=== PATIENT | male | born 1955 | race Caucasian/White ===

== ENCOUNTER 2017-11-17 11:04 | Emergency (ER) | payer OTHER ==
[2017-11-17 12:24] LABS: BILIRUBIN,URINE NEGATIVE (NEG); CLARITY,URINE CLEAR; COLOR,URINE YELLOW; GLUCOSE,URINE NEGATIVE (NEG); NITRITE,URINE NEGATIVE (NEG); PH,URINE 6.5; PROTEIN,URINE NEGATIVE (NEG-TRACE)
[2017-11-17 12:34] LABS: BACTERIA,URINE 0 /HPF (0-FEW); RBC,URINE OCC /HPF (0-2); WBC,URINE RARE /HPF (0-4)
[2017-11-17 12:55] LABS: ADD MAN DIFF? NO
[2017-11-17] MEDS: IV NORMAL SALINE 1000ML BAG 1,000 ML IV (12:55)
[2017-11-17] MEDS: ONDANSETRON PF 4 MG/2 ML VIAL. IV (12:55)
[2017-11-17] MEDS: fentaNYL PF VIAL 100 MCG/2 ML VIAL IV (12:59)
[2017-11-17 13:00] LABS: BASO % 1 % (0-3); EOS # 0.2 x10^3/uL (0.0-0.7); EOS % 4 % (0-3); HEMATOCRIT 45.1 % (39.0-53.0); HEMOGLOBIN 15.2 g/dL (13.0-17.5); LYMPH # 1.5 x10^3/uL (1.0-4.8); LYMPH % 26 % (24-48); MEAN CORPUSCULAR HEMOGLOBIN 30 pg (25-35); MEAN CORPUSCULAR HGB CONC 34 g/dL (31-37); MEAN CORPUSCULAR VOLUME 89 fL (79-100); MONO # 0.4 x10^3/uL (0.0-1.1); MONO % 8 % (0-9); NEUT # 3.5 x10^3uL (1.8-7.7); NEUT % 62 % (31-73); PLATELET COUNT 207 x10^3/uL (140-400); RED BLOOD COUNT 5.09 x10^6/uL (4.30-5.70); RED CELL DISTRIBUTION WIDTH 15.5 % (11.5-14.5); WHITE BLOOD COUNT 5.7 x10^3/uL (4.0-11.0)
[2017-11-17] MEDS: FAMOTIDINE 20 MG/2 ML VIAL IVP (13:02)
[2017-11-17 13:06] LABS: ANION GAP 8 (6-14); BLOOD UREA NITROGEN 14 mg/dL (8-26); CALCIUM 8.8 mg/dL (8.5-10.1); CARBON DIOXIDE 29 mmol/L (21-32); CHLORIDE 106 mmol/L (98-107); GLUCOSE 89 mg/dL (70-99); SODIUM 143 mmol/L (136-145)
[2017-11-17 13:12] LABS: ALBUMIN 3.4 g/dL (3.4-5.0); ALK PHOS 130 U/L (46-116); ALT (SGPT) 23 U/L (16-63); AST (SGOT) 17 U/L (15-37); DIRECT BILIRUBIN < 0.1 mg/dL (0.0-0.2); LIPASE 83 U/L (73-393); TOTAL BILIRUBIN 0.2 mg/dL (0.2-1.0); TOTAL PROTEIN 7.5 g/dL (6.4-8.2)
[2017-11-17 13:16] LABS: LACTIC ACID 0.7 mmol/L (0.4-2.0)
[2017-11-17 13:17] LABS: TROPONINI < 0.017 ng/mL (0.000-0.055)
[2017-11-17] MEDS ORDERED: CONTRAST GIVEN MC (13:30)
[2017-11-17] MEDS: IOHEXOL 300 MG/ML 100ML VIAL. IV (13:38)
== END 2017-11-17 15:10 | disposition home or self-care (01) ==
LOC: ER 11:04
DX: K57.92 Diverticulitis of intestine, part unspecified, without perforation or abscess without bleeding (principal); I25.2 Old myocardial infarction; Z90.49 Acquired absence of other specified parts of digestive tract
CPT/HCPCS: 36415; 74177; 80048; 80076; 81001; 83605; 83690; 84484; 85025; 93005; 96361; 96374; 96375; 99285-25; J2405; J3010; J7030; Q9967; S0028

== ENCOUNTER 2018-03-23 17:38 | Emergency (ER) | payer OTHER | END 2018-03-23 19:33 | disposition home or self-care (01) | LOC: ER 17:38 | DX: L03.314 Cellulitis of groin (principal); I25.2 Old myocardial infarction; Z90.49 Acquired absence of other specified parts of digestive tract | CPT/HCPCS: 76881; 99284-25 ==

== ENCOUNTER → 2018-04-14 | Day surgery (SDC) | payer OTHER ==
[~2018-04-14] MED LIST: LIDOCAINE 1% PF 2 ML VIAL. ID; LIDOCAINE 2% PF Vial for OR 5 ML VIAL.; MORPHINE SULFATE 2 MG/ML DISP.SYRIN. IV; PROCHLORPERAZINE 10 MG/2 ML VIAL. IV; PROPOFOL 20 ML IV; PROPOFOL 40 ML IV; fentaNYL PF VIAL 100 MCG/2 ML VIAL IV
[2018-04-14] MEDS: IV RINGERS,LACTATED 1000ML 1,000 ML IV (08:06)
== END | disposition home or self-care (01) ==
LOC: ENDOS 07:37
DX: Z12.11 Encounter for screening for malignant neoplasm of colon (principal); K63.5 Polyp of colon; K57.30 Diverticulosis of large intestine without perforation or abscess without bleeding; K64.0 First degree hemorrhoids; I10 Essential (primary) hypertension; Z96.653 Presence of artificial knee joint, bilateral; Z98.42 Cataract extraction status, left eye; Z96.1 Presence of intraocular lens; Z90.49 Acquired absence of other specified parts of digestive tract; Z98.890 Other specified postprocedural states; F17.200 Nicotine dependence, unspecified, uncomplicated; M19.90 Unspecified osteoarthritis, unspecified site; Z72.89 Other problems related to lifestyle; F17.210 Nicotine dependence, cigarettes, uncomplicated; I25.2 Old myocardial infarction; I25.10 Atherosclerotic heart disease of native coronary artery without angina pectoris; Z81.8 Family history of other mental and behavioral disorders; F32.9 Major depressive disorder, single episode, unspecified; F15.90 Other stimulant use, unspecified, uncomplicated
CPT/HCPCS: 45380; 88305; J2001; J2704

== ENCOUNTER 2019-05-15 02:11 | Emergency (ER) | payer MEDICAID, OTHER ==
[~2019-05-15] VITALS: Ht 198.1 cm; Wt 99.8 kg
[~2019-05-15 02:11] MED LIST changes: +CIPR500T94 PO; -LIDOCAINE 1% PF 2 ML VIAL. ID; -LIDOCAINE 2% PF Vial for OR 5 ML VIAL.; +METR500T PO; -MORPHINE SULFATE 2 MG/ML DISP.SYRIN. IV; -PROCHLORPERAZINE 10 MG/2 ML VIAL. IV; -PROPOFOL 20 ML IV; -PROPOFOL 40 ML IV; +SULF1TAB24 PO; -fentaNYL PF VIAL 100 MCG/2 ML VIAL IV
[2019-05-15 04:01] LABS: BASO % 0 % (0-3); EOS # 0.1 x10^3/uL (0.0-0.7); EOS % 1 % (0-3); HEMATOCRIT 52.4 % (39.0-53.0); HEMOGLOBIN 17.7 g/dL (13.0-17.5); LYMPH # 1.1 x10^3/uL (1.0-4.8); LYMPH % 10 % (24-48); MEAN CORPUSCULAR HEMOGLOBIN 30 pg (25-35); MEAN CORPUSCULAR HGB CONC 34 g/dL (31-37); MEAN CORPUSCULAR VOLUME 90 fL (79-100); MONO # 0.8 x10^3/uL (0.0-1.1); MONO % 7 % (0-9); NEUT # 9.2 x10^3/uL (1.8-7.7); NEUT % 83 % (31-73); PLATELET COUNT 280 x10^3/uL (140-400); RED BLOOD COUNT 5.84 x10^6/uL (4.30-5.70); RED CELL DISTRIBUTION WIDTH 14.1 % (11.5-14.5); WHITE BLOOD COUNT 11.1 x10^3/uL (4.0-11.0)
--- NOTE | 2019-05-15 04:09 | PHYS DOC ---
Past Medical History Past Medical History: Diverticulitis, [place], Other Additional Past Medical Histor: substance abuse Past Surgical History: Appendectomy, Knee Replacement, Other Additional Past Surgical Histo: back surgery nos, left eye cataract Smokin Pack Per Day Alcohol Use: Sober Drug Use: Marijuana, Methamphetamine Adult General Chief Complaint Chief Complaint: ABDOMINAL PAIN HPI HPI Patient is a 64 year old male with hx of diverticulitis, MT who presents with abdominal pain. Pt reports having dull intermittent epigastric abdominal pain st arted 2 months ago. The pain has become more constant for the past 3 days. He also feels more nauseated and has low appetite. Laying flat worsens the pain. He rates it as 6/10 and 3/10 with sitting straight up. He also has some dark tarry stool and constipation. Pt reports this episode is similar to his last hospital admission about a yr ago and was found to have diverticulitis. He has tried Aleve, Ibuprofen and OTC gas relieve med which does not relieve his symptoms. Review of Systems Review of Systems Constitutional: Denies fever or chills Eyes: Denies redness or eye pain HENT: Denies nasal congestion or sore throat Respiratory: Denies cough. Positive shortness of breath Cardiovascular: Denies chest pain or palpitations GI: Positive abdominal pain, nausea, or vomiting : Denies dysuria or hematuria Musculoskeletal: Denies back pain or joint pain Integument: Denies rash or skin lesions Neurologic: Denies headache, focal weakness or sensory changes Complete systems were reviewed and found to be within normal limits, except as documented in this note. Current Medications Current Medications Current Medications Medications (Trade) Dose Ordered Sig/Christie Start Time Stop Time Status Last Admin Dose Admin Famotidine (Pepcid Vial) 20 mg 1X ONCE 05/15/19 04:30 05/15/19 04:31 DC 05/15/19 04:06 20 MG Ondansetron HCl (Zofran) 4 mg 1X ONCE 05/15/19 04:30 05/15/19 04:31 DC 05/15/19 04:06 4 MG Sodium Chloride 1,000 ml @ 1,000 mls/hr 1X ONCE 05/15/19 04:30 05/15/19 05:29 05/15/19 04:06 1,000 MLS/HR Allergies Allergies Allergies Coded Allergies Type Severity Reaction Last Updated Verified No Known Drug Allergies 04/14/18 No Physical Exam Physical Exam Constitutional: Well developed, well nourished, no acute distress, non-toxic appearance HENT: Normocephalic, atraumatic, oropharynx moist Eyes: PERRL, EOMI, conjunctiva normal, no discharge Neck: Normal range of motion, no tenderness, supple Cardiovascular: Heart rate normal, regular rhythm Lungs & Thorax: Bilateral breath sounds clear to auscultation, no wheezing Abdomen: Soft, no rebound, mild epigastric tenderness. Negative gilliam's sign. Skin: Warm, dry, no erythema, no rash Back: No tenderness, no CVA tenderness Extremities: No tenderness, ROM intact, no edema Neurologic: Alert and oriented X 3, normal motor function, normal sensory function, no focal deficits noted Psychologic: Affect normal, judgement normal, mood normal Current Patient Data Vital Signs Vital Signs Date Time Temp Pulse Resp B/P (MAP) Pulse Ox O2 Delivery O2 Flow Rate FiO2 05/15/19 03:16 97.9 96 20 151/98 (115) 95 Room Air 97.9 Lab Values Laboratory Tests Test 05/15/19 03:33 05/15/19 04:00 White Blood Count 11.1 x10^3/uL (4.0-11.0) H Red Blood Count 5.84 x10^6/uL (4.30-5.70) H Hemoglobin 17.7 g/dL (13.0-17.5) H Hematocrit 52.4 % (39.0-53.0) Mean Corpuscular Volume 90 fL (79-100) Mean Corpuscular Hemoglobin 30 pg (25-35) Mean Corpuscular Hemoglobin Concent 34 g/dL (31-37) Red Cell Distribution Width 14.1 % (11.5-14.5) Platelet Count 280 x10^3/uL (140-400) Neutrophils (%) (Auto) 83 % (31-73) H Lymphocytes (%) (Auto) 10 % (24-48) L Monocytes (%) (Auto) 7 % (0-9) Eosinophils (%) (Auto) 1 % (0-3) Basophils (%) (Auto) 0 % (0-3) Neutrophils # (Auto) 9.2 x10^3/uL (1.8-7.7) H Lymphocytes # (Auto) 1.1 x10^3/uL (1.0-4.8) Monocytes # (Auto) 0.8 x10^3/uL (0.0-1.1) Eosinophils # (Auto) 0.1 x10^3/uL (0.0-0.7) Basophils # (Auto) 0.0 x10^3/uL (0.0-0.2) Prothrombin Time 13.5 SEC (11.7-14.0) Prothrombin Time INR 1.1 (0.8-1.1) Activated Partial Thromboplast Time 30 SEC (24-38) Sodium Level 140 mmol/L (136-145) Potassium Level 4.0 mmol/L (3.5-5.1) Chloride Level 101 mmol/L (98-107) Carbon Dioxide Level 27 mmol/L (21-32) Anion Gap 12 (6-14) Blood Urea Nitrogen 36 mg/dL (8-26) H Creatinine 3.1 mg/dL (0.7-1.3) H Estimated GFR (Cockcroft-Gault) 20.5 BUN/Creatinine Ratio 12 (6-20) Glucose Level 115 mg/dL (70-99) H Calcium Level 9.9 mg/dL (8.5-10.1) Total Bilirubin 0.6 mg/dL (0.2-1.0) Aspartate Amino Transferase (AST) 20 U/L (15-37) Alanine Aminotransferase (ALT) 31 U/L (16-63) Alkaline Phosphatase 117 U/L (46-116) H Creatine Kinase 148 U/L (39-308) Creatine Kinase MB (Mass) 2.9 ng/mL (0.0-3.6) Creatine Kinase MB Relative Index 2.0 % (0-4) Troponin I Quantitative < 0.017 ng/mL (0.000-0.055) Total Protein 8.4 g/dL (6.4-8.2) H Albumin 4.1 g/dL (3.4-5.0) Albumin/Globulin Ratio 1.0 (1.0-1.7) Lipase 105 U/L (73-393) Urine Collection Type Unknown Urine Color Marianela Urine Clarity Cloudy Urine pH 5.0 Urine Specific Wendell >=1.030 Urine Protein 30 mg/dL (NEG-TRACE) Urine Glucose (UA) Negative mg/dL (NEG) Urine Ketones (Stick) Trace mg/dL (NEG) Urine Blood Negative (NEG) Urine Nitrite Negative (NEG) Urine Bilirubin Moderate (NEG) Urine Urobilinogen Dipstick 1.0 mg/dL (0.2 mg/dL) Urine Leukocyte Esterase Trace (NEG) Urine RBC Occ /HPF (0-2) Urine WBC 5-10 /HPF (0-4) Urine Squamous Epithelial Cells Occ /LPF Urine Amorphous Sediment Present /HPF Urine Bacteria Few /HPF (0-FEW) Urine Hyaline Casts Many /HPF Urine Mucus Marked /LPF Laboratory Tests 05/15/19 03:33 Laboratory Tests 05/15/19 03:33 EKG EKG @0401 NSR at 97bpm, NO ST elevation, slight ST depression V4-V6, nonspecific t wave inversion I and aVL. Radiology/Procedures Radiology/Procedures PROCEDURE: CT ABDOMEN PELVIS WO CONTRAST CT abdomen pelvis without contrast. HISTORY: Epigastric pain CT scan of the abdomen and pelvis was done without contrast. There is mild atelectasis or minimal infiltrate in the lung bases. There is no pleural effusion. A liver lesion is not identified. There is no calcified gallstones or gallbladder wall thickening. There are granulomatous calcifications in the spleen. There is a small hiatus hernia. Adrenal glands are normal. Pancreas is normal. There is no mass or hydronephrosis in the kidneys. There is no free air or ascites or bowel obstruction. There is diverticulosis of the colon without diverticulitis. There is degenerative disc disease in the lumbar spine. There are old fractures of L2 and L3. There is mild spondylolisthesis at L5-S1 with foraminal stenosis. The appendix is not identified. IMPRESSION: 1. Mild atelectasis or infiltrate in the lung bases. 2. No abdominal or pelvic mass or other acute finding. PQRS Compliance Statement: One or more of the following individualized dose reduction techniques were utilized for this examination: 1. Automated exposure control 2. Adjustment of the mA and/or kV according to patient size 3. Use of iterative reconstruction technique Electronically signed by: Jason Damon MD (05/15/2019 4:56 AM) [facility] Course & Med Decision Making Course & Med Decision Making Pertinent Labs and Imaging studies reviewed. (See chart for details) [] Dragon Disclaimer Dragon Disclaimer This electronic medical record was generated, in whole or in part, using a voice recognition dictation system. Departure Departure Impression: Primary Impression: Abdominal pain Disposition: HOME, SELF-CARE Condition: IMPROVED Referrals: NO PCP (PCP) JUANJO MENDOZA MD Patient Instructions: Abdominal Pain (Nonspecific) Scripts Hyoscyamine Sulfate (LEVSIN-SL) 0.125 Mg Tab.subl 1-2 TAB SL PRN Q4HRS, #20 TAB Prov: DARCIE DE LA TORRE DO 05/15/19 Ondansetron (ONDANSETRON ODT) 4 Mg Tab.rapdis 1 TAB PO PRN Q6-8HRS PRN for NAUSEA, #16 TAB Prov: DARCIE DE LA TORRE DO 05/15/19 Famotidine (PEPCID) 20 Mg Tablet 20 MG PO BID, #20 TAB Prov: DARCIE DE LA TORRE DO 05/15/19 Problem Qualifiers Primary Impression: Abdominal pain Abdominal location: epigastric Qualified Codes: R10.13 - Epigastric pain DARCIE DE LA TORRE DO May 15, 2019 04:09
[2019-05-15 04:12] LABS: CALCIUM 9.9 mg/dL (8.5-10.1); CREATININE 3.1 mg/dL (0.7-1.3); GFR 20.5; PROTHROMBIN TIME PATIENT 13.5 SEC (11.7-14.0)
[2019-05-15 04:13] LABS: BILIRUBIN,URINE MODERATE (NEG); CLARITY,URINE CLOUDY; COLOR,URINE AMBER; NITRITE,URINE NEGATIVE (NEG); PROTEIN,URINE 30 mg/dL (NEG-TRACE)
[2019-05-15 04:19] LABS: ALBUMIN 4.1 g/dL (3.4-5.0); TOTAL BILIRUBIN 0.6 mg/dL (0.2-1.0); TOTAL PROTEIN 8.4 g/dL (6.4-8.2)
[2019-05-15] MEDS ORDERED: ONDANSETRON PF 4 MG/2 ML VIAL. IV ONE (04:30)
[2019-05-15] MEDS ORDERED: FAMOTIDINE 20 MG/2 ML VIAL IVP ONE (04:30)
[2019-05-15] MEDS ORDERED: IV NORMAL SALINE 1000ML BAG 1,000 ML IV ONE (04:30)
[2019-05-15 04:34] LABS: AMORPHOUS SEDIMENT,UR PRESENT /HPF; BACTERIA,URINE FEW /HPF (0-FEW); HYALINE CASTS, URINE MANY /HPF; RBC,URINE OCC /HPF (0-2); SQUAMOUS EPITHELIAL CELL,UR OCC /LPF
--- NOTE | 2019-05-15 04:59 | RAD ---
CT abdomen pelvis without contrast. HISTORY: Epigastric pain CT scan of the abdomen and pelvis was done without contrast. There is mild atelectasis or minimal infiltrate in the lung bases. There is no pleural effusion. A liver lesion is not identified. There is no calcified gallstones or gallbladder wall thickening. There are granulomatous calcifications in the spleen. There is a small hiatus hernia. Adrenal glands are normal. Pancreas is normal. There is no mass or hydronephrosis in the kidneys. There is no free air or ascites or bowel obstruction. There is diverticulosis of the colon without diverticulitis. There is degenerative disc disease in the lumbar spine. There are old fractures of L2 and L3. There is mild spondylolisthesis at L5-S1 with foraminal stenosis. The appendix is not identified. IMPRESSION: 1. Mild atelectasis or infiltrate in the lung bases. 2. No abdominal or pelvic mass or other acute finding. RS Compliance Statement: One or more of the following individualized dose reduction techniques were utilized for this examination: 1. Automated exposure control 2. Adjustment of the mA and/or kV according to patient size 3. Use of iterative reconstruction technique Electronically signed by: Jason Damon MD (05/15/2019 4:56 AM) [facility]
[2019-05-15] MEDS ORDERED: FAMO-63 PO (05:30)
[2019-05-15] MEDS ORDERED: ONDA4TAB12 PO (05:30)
[2019-05-15] MEDS ORDERED: HYOS0.1265 SL (05:30)
[2019-05-15 05:49] VITALS: BP 126/89
--- NOTE | 2019-05-15 06:44 | EKG ---
[facility] [address] [place] [address] Test Date: 2019-05-15 Test Time: 04:01:41 Pat Name: MAL NORTH Department: Room: Gender: M [employer] Actuary: : 1955 Requested By: DARCIE DE LA TORRE Order Number: [id number] Reading MD: Measurements Intervals [place] Rate: 97 P: 58 SC: 166 QRS: -64 QRSD: 98 T: 86 QT: 364 QTc: 467 Interpretive Statements SINUS RHYTHM ABNORMAL LEFT AXIS DEVIATION R-S TRANSITION ZONE IN V LEADS DISPLACED TO THE LEFT QRS(T) CONTOUR ABNORMALITY CONSIDER INFERIOR INFARCT T ABNORMALITY IN HIGH LATERAL LEADS ABNORMAL ECG RI6.01 No previous ECG available for comparison
== END 2019-05-15 06:00 | disposition home or self-care (01) ==
LOC: ER 02:11
DX: R10.13 Epigastric pain (principal); R06.02 Shortness of breath; R11.2 Nausea with vomiting, unspecified; I25.2 Old myocardial infarction; F17.200 Nicotine dependence, unspecified, uncomplicated; Z96.659 Presence of unspecified artificial knee joint; Z90.89 Acquired absence of other organs
CPT/HCPCS: 36415; 74176; 80053; 81001; 82553; 83690; 84484; 85025; 85610; 85730; 87086; 93005; 96361; 96374; 96375; 99285; J2405; J3490; J7030

== ENCOUNTER 2020-01-16 02:33 | Emergency (ER) | payer MEDICAID ==
[~2020-01-16 02:33] MED LIST changes: +FAMO-63 PO; +HYOS0.1265 SL; +ONDA4TAB12 PO
[2020-01-16] MEDS ORDERED: FAMOTIDINE 20 MG/2 ML VIAL IVP ONE (03:25)
[2020-01-16] MEDS ORDERED: KETOROLAC 15 MG/ML VIAL. IVP ONE (03:25)
[2020-01-16] MEDS ORDERED: ONDANSETRON PF 4 MG/2 ML VIAL. IVP ONE (03:25)
[2020-01-16] MEDS ORDERED: IOHEXOL 300 MG/ML 50 ML VIAL. PO ONE (05:30)
[2020-01-16] MEDS ORDERED: IV NORMAL SALINE 1000ML BAG 1,000 ML IV SCH (05:30)
[2020-01-16] MEDS ORDERED: IOHEXOL 300 MG/ML 100ML VIAL. IV ONE (05:30)
[2020-01-16] MEDS ORDERED: CONTRAST GIVEN. MC PRN (05:45)
--- NOTE | 2020-01-16 05:48 | RAD ---
PQRS Compliance Statement: One or more of the following individualized dose reduction techniques were utilized for this examination: 1. Automated exposure control 2. Adjustment of the mA and/or kV according to patient size 3. Use of iterative reconstruction technique CT ABD PELV W/ORAL IV CONTRAST Clinical Indication: Abdominal pain. Comparison: CT abdomen and pelvis without contrast May 15, 2019. Technique: Helical CT imaging of the abdomen and pelvis is performed after 75 cc of Omnipaque 300 IV contrast. Oral contrast also administered. Findings: Lung bases essentially clear. Coronary artery disease. The cardiac size is normal. Calcified granulomas in the spleen. The liver, gallbladder, pancreas, adrenal glands, abdominal aorta, and kidneys are normal. Stomach unremarkable. There is no small bowel obstruction. Oral contrast reaches the colon. There is severe distal colon diverticulosis. No acute inflammation is identified. No colon wall thickening is seen. Appendix is surgically absent. There is no abdominal adenopathy or free fluid. The urinary bladder is normal. The distal left ureter is dilated. The ureter was mildly dilated on the prior study but is now more dilated. There is no ureteral calculus. The prostate size is normal. There is no pelvic free fluid. There are old compression fractures superior endplates of L2 and L3. There is minimal left convexity lumbar scoliosis. There is probable L5 spondylolysis. There is grade 1 anterolisthesis of L5 on S1. Mild grade 1 retrolisthesis of L4 on L5. IMPRESSION: 1. No acute abdominal or pelvic abnormality. 2. There is severe distal colon diverticulosis. 3. The distal left ureter is dilated. Finding present on prior study but has increased. There is no ureteral calculus. Narrowing at the ureterovesicular junction or reflux are considerations. Electronically signed by: Bradley Wang MD (01/16/2020 5:45 AM) [id number]
[2020-01-16] MEDS ORDERED: ONDA4TAB12 PO (06:29)
[2020-01-16] MEDS ORDERED: FAMO-63 PO (06:29)
[2020-01-16] MEDS ORDERED: HYOS0.1265 SL (06:29)
--- NOTE | 2020-01-16 06:32 | EKG ---
[facility] [address] [place] [address] Test Date: 2020-01-16 Test Time: 03:49:12 Pat Name: MAL NORTH Department: Room: Gender: M Transporter Radiology: : 1955 Requested By: DARCIE DE LA TORRE Order Number: [id number] Reading MD: Yamil Bolton MD Measurements Intervals [place] Rate: 80 P: 48 NM: 200 QRS: -57 QRSD: 84 T: 92 QT: 386 QTc: 449 Interpretive Statements SINUS RHYTHMLAD CANNOT RULE OUT PRIOR INFERIOR INFARCT NON-SPECIFIC ST/T CHANGES Electronically Signed On 01-17-2020 11:44:06 CDT by Yamil Bolton MD
[2020-01-16 08:23] LABS: ALBUMIN 4.2 g/dL (3.4-5.0); CALCIUM 10.2 mg/dL (8.5-10.1); CREATININE 1.1 mg/dL (0.7-1.3); DIRECT BILIRUBIN 0.2 mg/dL (0.0-0.2); GFR 67.6; POTASSIUM 4.1 mmol/L (3.5-5.1); TOTAL BILIRUBIN 0.7 mg/dL (0.2-1.0); TOTAL PROTEIN 7.6 g/dL (6.4-8.2)
[2020-01-16 08:59] LABS: BASO % 0 % (0-3); EOS % 1 % (0-3); HEMOGLOBIN 16.8 g/dL (13.0-17.5); LYMPH # 1.1 x10^3/uL (1.0-4.8); LYMPH % 14 % (24-48); MEAN CORPUSCULAR HEMOGLOBIN 31 pg (25-35); MEAN CORPUSCULAR HGB CONC 34 g/dL (31-37); MEAN CORPUSCULAR VOLUME 90 fL (79-100); MONO # 0.6 x10^3/uL (0.0-1.1); MONO % 8 % (0-9); NEUT # 6.3 x10^3/uL (1.8-7.7); NEUT % 78 % (31-73); PLATELET COUNT 162 x10^3/uL (140-400); RED BLOOD COUNT 5.48 x10^6/uL (4.30-5.70); RED CELL DISTRIBUTION WIDTH 14.6 % (11.5-14.5); WHITE BLOOD COUNT 8.1 x10^3/uL (4.0-11.0)
[2020-01-16 09:04] LABS: PROTHROMBIN TIME PATIENT 13.3 SEC (11.7-14.0)
== END 2020-01-16 06:31 | disposition home or self-care (01) ==
LOC: ER 02:33
DX: R10.9 Unspecified abdominal pain (principal); R11.2 Nausea with vomiting, unspecified; F17.200 Nicotine dependence, unspecified, uncomplicated
CPT/HCPCS: 36415; 74177; 80048; 80076; 83605; 83690; 85025; 85610; 85730; 93005; 99285; J1885; J2405; J3490; J7030; Q9967

== ENCOUNTER 2020-02-09 05:27 | Emergency (ER) | payer MEDICAID ==
[~2020-02-09] VITALS: Ht 198.1 cm; Wt 104.9 kg
--- NOTE | 2020-02-09 05:50 | PHYS DOC ---
Past Medical History Past Medical History: Diverticulitis, [place], Other Additional Past Medical Histor: substance abuse (AMY GONZALEZ Jr. DO) Past Surgical History: Appendectomy, Knee Replacement, Other Additional Past Surgical Histo: back surgery nos, left eye cataract (AMY GONZALEZ Jr. DO) Smoking Status: Current Every Day Smoker Alcohol Use: Sober Drug Use: Marijuana, Methamphetamine (AMY GONZALEZ Jr. DO) General Adult EDM: Chief Complaint: LOWER BACK PAIN OR INJURY HPI: HPI: Patient is a 64 year old male who presents with complaint of pain in his tailbone and his back after falling about a week ago. Patient states that he had been standing up on a metal table and 1 of the objects that he been standing on had been a little higher than he thought when he stepped down, he fell, landing on his buttocks. He states that he fell approximately 6 feet. He states that the pain goes from his tailbone all the way up to the mid thoracic region. He rates pain at an 8 out of 10. He denies any loss of bowel or bladder control. He also denies any saddle anesthesia. Patient states the pain is worsened with movement. [] (AMY GONZALEZ Jr. DO) Review of Systems: Review of Systems: Constitutional: Denies fever or chills. [] Respiratory: Denies cough or shortness of breath. [] Cardiovascular: Denies chest pain or edema. [] Musculoskeletal: Complains of back and tailbone pain. [] Integument: Denies rash. [] Neurologic: Denies headache, focal weakness or sensory changes. [] (AMY GONZALEZ Jr. DO) Heart Score: Risk Factors: Risk Factors: DM, Current or recent (<one month) smoker, HTN, HLP, family history of CAD, obesity. Risk Scores: Score 0 - 3: 2.5% MACE over next 6 weeks - Discharge Home Score 4 - 6: 20.3% MACE over next 6 weeks - Admit for Clinical Observation Score 7 - 10: 72.7% MACE over next 6 weeks - Early Invasive Strategies (AMY GONZALEZ Jr. DO) Allergies: Allergies: Allergies Coded Allergies Type Severity Reaction Last Updated Verified No Known Drug Allergies 04/14/18 No (AMY GONZALEZ Jr., DO) Physical Exam: PE: Constitutional: Well developed, well nourished, no acute distress, non-toxic appearance. [] Neck: Normal range of motion, no tenderness, supple, no stridor. [] Cardiovascular: Regular rate and rhythm [] Lungs & Thorax: Bilateral breath sounds clear to auscultation [] Abdomen: Bowel sounds normal, soft, no tenderness. [] Skin: Warm, dry, no erythema, no rash. [] Back: There is tenderness to palpation on the spinous processes of lower lumbar region as well as mid thoracic region. [] Extremities: No tenderness, no cyanosis, no clubbing, ROM intact, no edema. [] Neurologic: Alert and oriented X 3, no focal deficits noted. [] (AMY GONZALEZ Jr., DO) EKG: EKG: [] (AMY GONZALEZ Jr., DO) Radiology/Procedures: Radiology/Procedures: [] (AMY GONZALEZ Jr., DO) Course & Med Decision Making: Course & Med Decision Making Pertinent Labs and Imaging studies reviewed. (See chart for details) [] (AMY GONZALEZ Jr., DO) Course & Med Decision Making Xray Impressions: IMPRESSION: 1. No fracture. 2. Degenerative disc disease is moderate to severe from L3 through S1, moderate to severe from C5 through C7, and mild to moderate within the upper thoracic spine. Discussed results of imaging with patient. Patient states that the GI cocktail has helped. Patient will be discharged home with Pepcid and Carafate. Discussed results and plan of care with patient. Patient is instructed to follow up with PCP in one to 2 days. Appropriate discharge instructions given to patient to return to the ED or to seek immediate medical evaluation. Patient is instructed to return to the ED if symptoms worsen or if any concerns. (ANA DUFFY DO) Lata Disclaimer: Lata Disclaimer: This electronic medical record was generated, in whole or in part, using a voice recognition dictation system. (AMY GONZALEZ Jr., DO) Departure Departure Impression: Primary Impression: Back pain due to injury Additional Impression: Gastritis Disposition: 01 HOME, SELF-CARE Condition: IMPROVED Referrals: NO PCP (PCP) Patient Instructions: Back Pain, Adult, Gastritis, Adult Additional Instructions: Please return to the ER symptoms worsen or if any concerns. Please follow-up with your PCP in 1 to 2 days. Scripts Sucralfate (CARAFATE) 1 Gm Tablet 1 TAB PO BID for 14 Days, #28 TAB 0 Refills Prov: ANA DUFFY DO 02/09/20 Famotidine (PEPCID) 20 Mg Tablet 20 MG PO HS for 14 Days, #14 TAB Prov: ANA DUFFY DO 02/09/20 Attending Signature Attending Signature (ANA DUFFY DO) AMY GONZALEZ Jr., DO February 09, 2020 05:50 ANA DUFFY DO February 09, 2020 06:34
[2020-02-09] MEDS ORDERED: LIDO:MAALOX 1:1 20 ML SINGLE DOSE. SWSW ONE (06:00)
[2020-02-09] MEDS ORDERED: KETOROLAC 60 MG/2 ML VIAL. IM ONE (06:00)
[2020-02-09] MEDS ORDERED: ORPHENADRINE CITRATE 60 MG/2 ML VIAL. IM ONE (06:00)
--- NOTE | 2020-02-09 06:19 | RAD ---
EXAM: 1. Thoracic spine 3 views. 2. Lumbar spine 3 views. 3. Sacrum/coccyx 3 views. HISTORY: Fall, pain. COMPARISON: None. FINDINGS: Images of the lower cervical spine demonstrate moderate to severe degenerative disc disease from C5 through C7. Thoracic alignment is maintained. No fractures are identified. There is mild to moderate degenerative disc disease within the upper thoracic spine. The aorta is calcified and tortuous. There is a mild lumbar levocurvature. Mild superior endplate depression at L2-L4 appears chronic. Degenerative disc disease is moderate to severe from L3 through S1 and mild more superiorly. Facet osteoarthritis is moderate to severe from L3 through S1. There is no displaced sacral or coccygeal fracture. The sacroiliac joints are normally aligned. IMPRESSION: 1. No fracture. 2. Degenerative disc disease is moderate to severe from L3 through S1, moderate to severe from C5 through C7, and mild to moderate within the upper thoracic spine. Electronically signed by: Tonio Menjivar MD (02/09/2020 6:16 AM) [facility]
[2020-02-09] MEDS ORDERED: SUCR1TAB35 PO (06:55)
[2020-02-09] MEDS ORDERED: FAMO-63 PO (06:55)
[2020-02-09 07:03] VITALS: BP 156/97
== END 2020-02-09 07:15 | disposition home or self-care (01) ==
LOC: ER 05:27
DX: K29.70 Gastritis, unspecified, without bleeding (principal); M54.5 Low back pain; M54.6 Pain in thoracic spine; G89.11 Acute pain due to trauma; M47.817 Spondylosis without myelopathy or radiculopathy, lumbosacral region; F17.200 Nicotine dependence, unspecified, uncomplicated; I25.2 Old myocardial infarction; W17.89XA Other fall from one level to another, initial encounter; Y93.89 Activity, other specified; Y92.89 Other specified places as the place of occurrence of the external cause; Y99.8 Other external cause status
CPT/HCPCS: 72072; 72100; 72220; 96372; 99284; J1885; J2360